=== PATIENT | female | born 1955 | race Caucasian/White ===

== ENCOUNTER 2018-08-04 11:03 | Emergency (ER) | payer BC ==
[2018-08-04] MEDS ORDERED: Acetaminophen/Codeine 30-300mg Tablet ONE (11:23)
[2018-08-04] MEDS ORDERED: Cyclobenzaprine 10 MG TAB ONE (11:23)
== END 2018-08-04 11:29 | disposition home or self-care (01) ==
LOC: BURERS 11:03
DX: M54.41 Lumbago with sciatica, right side (principal); I10 Essential (primary) hypertension
CPT/HCPCS: 99283